=== PATIENT | male | born 1945 | race Caucasian/White ===

== ENCOUNTER → 2023-10-28 11:55 | Outpatient (REF) | payer MEDICARE, OTHER, SELFPAY ==
[2023-10-30 11:56] LABS: Quantiferon Mitogen minus NIL 9.89 IU/mL; Quantiferon NIL 0.11 IU/mL; Quantiferon TB Gold Plus Negative (Negative)
== END ==
LOC: REG 11:55
PROVIDERS: ATTENDING PHYSICIAN Internal Medicine Gastroenterology; FAMILY PHYSICIAN Internal Medicine
DX: K50.80 Crohn's disease of both small and large intestine without complications (principal)
CPT/HCPCS: 36415; 86480

== ENCOUNTER → 2023-10-31 10:19 | Outpatient (REF) | payer MEDICARE, OTHER, SELFPAY | LOC: REG 10:19 | PROVIDERS: ATTENDING PHYSICIAN Internal Medicine Gastroenterology; FAMILY PHYSICIAN Internal Medicine | DX: K50.80 Crohn's disease of both small and large intestine without complications (principal) | CPT/HCPCS: 83993 ==